=== PATIENT | female | born 1965 | race Caucasian/White ===

== ENCOUNTER → 2020-09-22 04:52 | Outpatient (CLI) | payer OTHER, SELFPAY ==
[2020-09-22 19:22] LABS: SARS-CoV-2 RNA PCR Negative
== END ==
PROVIDERS: PCP Family Medicine Adolescent Medicine; Visit Provider Obstetrics & Gynecology Gynecology
DX: Z01.812 Encounter for preprocedural laboratory examination (principal); Z20.822 Contact with and (suspected) exposure to COVID-19
CPT/HCPCS: C9803; U0003; U0005

== ENCOUNTER 2020-09-25 01:29 | Day surgery (SDC) | payer OTHER, SELFPAY ==
[2020-09-15 15:36] VITALS: BMI 27.1
[2020-09-25 06:56] VITALS: BP 133/90; PULSE 69; RESP 16; TEMP 36.4; O2SAT 100
[2020-09-25] MEDS: ACETAMINOPHEN 500 MG TABLET 1000 MG PO (07:04)
--- NOTE | 2020-09-25 07:07 | WPDHPUPDATE1 ---
History and Physical Update Update Date/Time: 09/25/20 07:07 History and Physical has been reviewed, including an updated exam of the patient. There are NO changes in the patient's condition. Risks, benefits, and alternatives have been discussed and questions answered. Patient agrees to proceed with procedure.
--- NOTE | 2020-09-25 07:08 | PM.HPGS ---
History of Present Illness History of Present Illness Consent: Risks, benefits, and alternatives have been discussed and questions answered. Patient agrees to proceed with procedure. Chief complaint: postmenopausal bleeding Narrative: Angelic Gaston is a 55 year old female with postmenopausal bleeding. U/s showed cystic area within the endometrial cavity 5x2.5 mm otherwise not thickened. Recommend further evaluation with hysteroscopy and endometrial sampling. Risks of infection, bleeding, and perforation reviewed. Questions answered and patient agrees to proceed. Review of Systems Review of Systems: Narrative: not repeated day of surgery; patient states no changes in status [facility] Past Medical History Medical History (Updated 09/25/20 @ 07:14 by Mell Camargo MD) Hypothyroid (normal spontaneous vaginal delivery) Surgical History Surgical History (Updated 09/25/20 @ 07:13 by Mell Camargo MD) History of suburethral sling procedure S/P endometrial ablation S/P laparoscopic cholecystectomy S/P left knee arthroscopy S/P partial thyroidectomy S/P tubal ligation Family History Family History (Updated 09/14/18 @ 14:29 by DOCTOR UNKNOWN) Father Family history of cardiovascular disease Family history of arthritis Family history of dementia Mother Family history of lung cancer Social History Social History Smoking status: Former smoker Tobacco type: cigarettes Smoking end date: 07/24/19 Additional smoking assessment comments: 1/4ppd cigarettes Alcohol use details: drinks 2x a month Substance use: never Living arrangements: with family Spiritual care concerns: No Meds Home Medications and Allergies Home Medications Medication Instructions Recorded Confirmed Type calcium 500 mg PO DAILY 09/15/20 09/25/20 History desvenlafaxine succinate 50 mg PO DAILY 09/15/20 09/25/20 History ergocalciferol (vitamin D2) 1,250 mcg PO WEEKLY 09/15/20 09/25/20 History estradiol-norethindrone acet 0.1 tablet PO DAILY 09/15/20 09/25/20 History levothyroxine [Synthroid] 112 mcg PO DAILY 09/15/20 09/25/20 History lorazepam 0.5 mg PO PRN 09/15/20 09/25/20 History magnesium 250 mg PO DAILY 09/15/20 09/25/20 History famotidine [Pepcid] 20 mg PO PRN 09/25/20 09/25/20 History Allergies Allergy/AdvReac Type Severity Reaction Status Date / Time No Known Allergies Allergy Mild Unverified 09/25/20 06:56 Exam Const: General: healthy appearing and alert Orientation/consciousness: patient oriented x3 Resp: Effort & Inspection: normal respiratory effort Auscultation: clear to auscultation bilaterally Cardio: Rate: regular rate Rhythm: regular rhythm GI: GI Palp: Yes Soft to palpation, No Tenderness to palpation present (GI) and No Palpable mass present : External Female Exam: normal external appearance Speculum Exam - Vagina: normal appearance of the vagina and normal vaginal discharge Speculum Exam - Cervix: normal appearance of the cervix Bimanual exam- vagina & uterus: uterine size normal and consistency normal Bimanual Exam- Adnexa, other: normal adnexae and No adnexal tenderness Neuro: General: patient oriented x3 Assessment and Plan Assessment and plan (1) Post-menopausal bleeding: Code(s): N95.0 - Postmenopausal bleeding Status: Acute Assessment and Plan: Plan hysteroscopy and D&C
[2020-09-25] MEDS: LACTATED RINGERS 1,000 ML 30 ML IV CONT (07:12)
--- NOTE | 2020-09-25 07:50 | WPDANESEPPF ---
Anes - Initial Pre Proc Eval Procedure: Operation Date: 09/25/20 08:30 Proposed Procedures p Hysteroscopy Dilation and Curettage - Mell Camargo MD Date/Time: 09/25/20 07:50 Surgeon: Mell Camargo MD Pre Op Diagnosis: postmenopausal bleeding Patient Data Age: 55 Gender: F Height: 5 ft 8 in Weight: 77.5 kg Last Vital Signs Temp 36.4 C L 09/25/20 06:56 Pulse 69 09/25/20 06:56 Resp 16 09/25/20 06:56 BP 133/90 09/25/20 06:56 Pulse Ox 100 09/25/20 06:56 Allergies Allergy/AdvReac Type Severity Reaction Status Date / Time No Known Allergies Allergy Mild Unverified 09/25/20 06:56 Home Medications Medication Instructions Recorded Confirmed Type calcium 500 mg PO DAILY 09/15/20 09/25/20 History desvenlafaxine succinate 50 mg PO DAILY 09/15/20 09/25/20 History ergocalciferol (vitamin D2) 1,250 mcg PO WEEKLY 09/15/20 09/25/20 History estradiol-norethindrone acet 0.1 tablet PO DAILY 09/15/20 09/25/20 History levothyroxine [Synthroid] 112 mcg PO DAILY 09/15/20 09/25/20 History lorazepam 0.5 mg PO PRN 09/15/20 09/25/20 History magnesium 250 mg PO DAILY 09/15/20 09/25/20 History famotidine [Pepcid] 20 mg PO PRN 09/25/20 09/25/20 History Patient hx anesthesia problems: none Family hx anesthesia problems: none PMFSH Past Medical History Medical History Hypothyroid (normal spontaneous vaginal delivery) Surgical History Surgical History History of suburethral sling procedure S/P endometrial ablation S/P laparoscopic cholecystectomy S/P left knee arthroscopy S/P partial thyroidectomy S/P tubal ligation Family History Family History Father Family history of cardiovascular disease Family history of arthritis Family history of dementia Mother Family history of lung cancer Social History Social History Smoking status: Former smoker Tobacco type: cigarettes Smoking end date: 07/24/19 Additional smoking assessment comments: 1/4ppd cigarettes Alcohol use details: drinks 2x a month Substance use: never Living arrangements: with family Spiritual care concerns: No Anes - Eval Final PreProcedure Day of Procedure 09/25/20 07:50 Patient weight: normal Heart: regular rate and rhythm Lungs: clear to auscultation Airway: Mallampati scale class II Neurological: alert and oriented Last oral intake: >/= 8 hours ASA classification: II Emergent: no Anesthetic plan: proceed Anesthesia type and monitoring: general GIVS and standard monitoring Informed Consent: The patient's anesthetic plan and its attendant risks and benefits were discussed with the patient/family/POA. Questions were solicited and answers provided to the satisfaction of the patient/family/POA.
[2020-09-25] MEDS: KETOROLAC 30 MG/ML VIAL (*BKC) IV PUSH (08:43)
--- NOTE | 2020-09-25 08:47 | P.OP_ITS ---
Procedure Note - Detailed Date of procedure: 09/25/20 Pre-op diagnosis: postmenopausal bleeding Post-op diagnosis: same Procedure performed: D&C hysteroscopy with myosure Description of procedure: The patient was taken to the operating room and placed under anesthesia in the dorsal lithotomy position under anesthesia. She was prepped and draped in the usual sterile fashion. [place] speculum was placed in the vagina and cervix is grasped on the anterior lip with a tenaculum. The cervix was injected with lidocaine in each quadrant and the uterus was attempted to be sounded. The internal os is noted to be stenotic. The os Finders are used to open the cervix and then the Hegars are used to dilate. The diagnostic hysteroscope is placed and what appears to be the scarred endometrial cavity is entered there is a calcified appearing fibroid on the left fundus as well as some thickened area consistent with possible scar tissue next to it. Upon withdrawing the camera there is also a passage appears to be to the upper left but I am unable to enter this cavity. The regular MyoSure is opened and placed. The lesion and the scar tissue thickened around it was removed under direct visualization. When I a completed the removal of visible lesions I attempted to place the camera through the upper left passage and perforated. All instruments were then removed and the patient awakened from the anesthesia. There was a 440 deficit of fluid. Sponge, instrument, and needle counts are correct per the OR staff. The patient was awakened from anesthesia and taken to recovery in stable condition. Anesthesia: MAC and local Surgeon: Mell Camargo MD Estimated blood loss (mL): 5 Drains: No Packing: No Pathology: yes (endometrial shavings) Complications: Other complications (perforation at end of case) Condition: stable Disposition: PACU Findings: internal os stenotic; endometrium scarred consistent with prior ablation; calcified fibroid left side wall mid fundus
[2020-09-25 08:53] VITALS: BP 145/82; PULSE 71; RESP 16; O2SAT 99
[2020-09-25] MEDS: fentaNYL CITRATE INJ (*CRX) 100 MCG/2 ML VIAL 25 MCG IV PUSH ×2 (09:08→09:12)
[2020-09-25 09:15] VITALS: BP 154/87; PULSE 63; RESP 16; O2SAT 96
[2020-09-25 09:45] VITALS: BP 146/87; PULSE 61; RESP 16; O2SAT 96
== END 2020-09-25 09:57 | disposition home or self-care (01) ==
PROVIDERS: PCP Internal Medicine; Visit Provider Obstetrics & Gynecology Gynecology
PROC: 0U5B8ZZ Destruction of Endometrium, Via Natural or Artificial Opening Endoscopic (ICD-10-PCS; CPT 58563; principal; 2020-09-25 08:30)
DX: N95.0 Postmenopausal bleeding (principal); N99.71 Accidental puncture and laceration of a genitourinary system organ or structure during a genitourinary system procedure; Y65.8 Other specified misadventures during surgical and medical care; D25.9 Leiomyoma of uterus, unspecified; N85.8 Other specified noninflammatory disorders of uterus; E03.9 Hypothyroidism, unspecified; Z87.891 Personal history of nicotine dependence
CPT/HCPCS: 58558; 88305; A9270; C9803; J1885; J2250; J2405; J2704; J3010; J7030; J7120; U0003; U0005